=== PATIENT | male | born 1990 | race Caucasian/White ===

== ENCOUNTER 2019-11-12 19:39 | Emergency (ER) | payer SELFPAY ==
[~2019-11-12] VITALS: Ht 162.6 cm; Wt 70.0 kg
[2019-11-12] MEDS ORDERED: LORAZEPAM 0.5MG TABLET PO ONE (22:00)
[2019-11-12] MEDS ORDERED: HALOPERIDOL LACTATE 5MG/ML VIAL IM ONE (22:30)
[2019-11-12] MEDS ORDERED: LORAZEPAM 2MG/ML CPJ IV ONE (22:30)
[2019-11-13 00:52] VITALS: BP 166/85
== END 2019-11-13 01:16 | disposition left against medical advice (07) ==
LOC: ER 19:39
DX: F10.10 Alcohol abuse, uncomplicated (principal); I10 Essential (primary) hypertension; Y90.9 Presence of alcohol in blood, level not specified
CPT/HCPCS: 96372; 96374; 99284; J1630; J2060